=== PATIENT | male | born 1995 | race Caucasian/White ===

== ENCOUNTER → 2020-03-21 | Outpatient (CLI) | payer OTHER ==
[~2020-03-21] MED LIST: ACID REDUCER20 MG PO; PROTONIX40 MG PO; REGLAN10 MG PO; ZYRTEC10 M3 PO
== END ==
LOC: KOH-I 13:16
DX: R59.0 Localized enlarged lymph nodes (principal)
CPT/HCPCS: 76536

== ENCOUNTER → 2020-04-16 | Outpatient (CLI) | payer OTHER, MEDICARE | LOC: KOH-I 04-10 11:00 | DX: R74.8 Abnormal levels of other serum enzymes (principal); Z90.49 Acquired absence of other specified parts of digestive tract | CPT/HCPCS: 76705 ==

== ENCOUNTER → 2020-05-22 | Outpatient (CLI) | payer OTHER | LOC: KOH-I 05-15 13:00 | DX: R59.1 Generalized enlarged lymph nodes (principal); R59.9 Enlarged lymph nodes, unspecified | CPT/HCPCS: 76536 ==

== ENCOUNTER 2021-09-10 07:46 | Emergency (ER) | payer OTHER ==
[2021-09-10 09:16] LABS: HEMOGLOBIN 16.4 gm/dl (14.0-17.5); RED BLOOD COUNT 4.86 M/UL (4.20-5.50); WHITE BLOOD COUNT 7.4 K/UL (4.5-11.0)
[2021-09-10 09:40] LABS: BUN/CREATININE RATIO 15 (0-10)
== END 2021-09-10 10:15 | disposition home or self-care (01) ==
LOC: ER1 07:46
PROVIDERS: Nurse Practitioner
DX: K21.9 Gastro-esophageal reflux disease without esophagitis (principal); R14.2 Eructation; F17.210 Nicotine dependence, cigarettes, uncomplicated; Z79.899 Other long term (current) drug therapy
CPT/HCPCS: 80053; 85025; 99283